=== PATIENT | female | born 1975 | race Caucasian/White ===

== ENCOUNTER 2025-07-07 09:34 | Inpatient (IN) ==
[2025-07-07 09:49] VITALS: BMI 25.5
[2025-07-07 10:16] LABS: MEAN PLATELET VOLUME 8.5 fL (7.4-11.0); RED CELL DISTRIBUTION WIDTH 14.1 % (11.6-16.5)
[2025-07-07 10:27] LABS: COR CA(FOR HYPOALB) 9.4 mg/dL (8.5-10.1); COR NA(FOR HYPERGLY) 132.0 mmol/L (136-145); CREATININE 1.89 mg/dL (0.55-1.02); eGFR NON BLACK RACES 30.0 (>60)
[2025-07-07 10:32] LABS: BAND NEUTROPHILS % 14 % (0-10); PLATELET MORPHOLOGY COMMENT NORMAL (NORMAL)
[2025-07-07 11:13] LABS: BLOOD/HEMOGLOBIN,URINE 3+ (NEGATIVE); LEUKOCYTE ESTERASE ,URINE 3+ (NEGATIVE); NITRITES,URINE NEGATIVE (NEGATIVE)
[2025-07-07 11:14] LABS: APPEARANCE,URINE CLOUDY (CLEAR)
[2025-07-07 11:20] LABS: SQUAMOUS EPITHELIAL CELL,UR FEW /HPF (NEGATIVE)
--- NOTE | 2025-07-07 11:27 | DR.GENAD ---
HPI Time Seen Time Seen by Provider: 07/07/25 09:49 PCP Primary Care Physician: DEBI Complaint/Symptoms Chief Complaint Doctors Comments: Patient with complaint of mid abdominal pain with nausea and diarrhea but no vomiting. This has been going on for 2 to 3 days. No fever. Chief Complaint:: Patient in to ER via WC very soft spoken C/O mid abdominal pain, nausea without vomiting, and diarrhea x 2-3 days. Mucosa moist and pink. COVID-19 Coronavirus risk:travel/contact w/high risk person: No Has patient experienced Coronavirus symptoms: No Source History Provided: Patient and Parent Mode of Arrival Mode of Arrival: Ambulatory Timing Onset of Chief Complaint: 07/05/25 PMH PMH Past Medical History: Yes Past Medical History: Arthritis and Hypertension Past Surgical History: Yes Surgical History: and Ortho Surgery Family History History of Family Medical Conditions: No Family Medical History: Cancer, Coronary Artery Disease and Hypertension Social History Does patient currently use any type of tobacco product: Yes Have you used tobacco products in the last 12 months: Yes Type of Tobacco Use: Vape Does any household member use tobacco: Yes Alcohol Use: None Do you use any recreational Drugs:: No Lives With: Family Lives Where: Home Travel Risk Coronavirus risk:travel/contact w/high risk person: No Has patient experienced Coronavirus symptoms: No Infectious screening In the last 2 months have you had wt loss of >10#?: NO Have you had fever, night sweats or hemotysis?: No Have you traveled outside the country in the last 6 months?: No Isolation: Standard ROS Review of Systems Constitutional: No Symptoms Reported Eyes: No Symptoms Reported ENTM: No Symptoms Reported Respiratoy: No Symptoms Reported Cardiovascular: No Symptoms Reported Gastrointestinal/Abdominal: See HPI Genitourinary: No Symptoms Reported Neurological: No Symptoms Reported Musculoskeletal: No Symptoms Reported Integumentary: No Symptoms Reported Hematologic/Lymphatic: No Symptoms Reported Endocrine: No Symptoms Reported Psychiatric: No Symptoms Reported All Other Systems: Reviewed and Negative PE Vital Signs Vitals: Vital Signs Temperature 97.9 F Pulse Rate 121 Respiratory Rate 16 Respiratory Rate 16 Blood Pressure 162/93 O2 Sat by Pulse Oximetry 96 General Limitations: No Limitations General Appearance: Alert and In No Apparent Distress Head Head Exam: Normal Inspection Eyes Eye exam: Normal Appearance Neck Neck Exam: Normal Inspection Chest Chest Inspection: Normal Inspection Respiratory Respiratory Exam: Normal Lung Sounds Bilat Respiratory Exam: Bilateral: Clear to Auscultation Cardiovascular Cardiovascular Exam: Regular Rate and Normal Rhythm Abdominal Exam Abdominal Exam: Normal Bowel Sounds, Soft and Tenderness (Left upper quadrant to left lower quadrant and generalized); negative Distention, Guarding, Rebound, Rigidity, Organomegaly or Ascites Extremities Extremities Exam: Normal Inspection Back Back Exam: Normal Inspection Neurologic Neurological Exam: Alert and Oriented X3 Psychiatric Psychiatric Exam: Normal Affect and Normal Mood Skin Skin Exam: Warm, Dry, Intact and Normal Color COURSE Treatment Treatment: Discussed results of workup with patient. Patient agreeable with admission. Consultation Consultation Comments: Discussed case with Dr. Benson, surgeon. He has seen and examined patient in the ER and agreeable with admission. Critical Care Notes Total Time (mins): 42 Critical Diagnosis: Colitis Critical Interventions: Time spent examining patient, Ordering and reviewing workup, coordinating with specialist and educating patient. Fluids and IV antibiotics given. ROR Labs Reviewed Laboratory Results Reviewed?: Yes 07/07/25 10:05 07/07/25 10:05 Laboratory: WBC 22.3 X10^3/uL (3.6-10.0) H 07/07/25 10:05 RBC 5.44 X10^6/uL (3.5-5.4) H 07/07/25 10:05 Hgb 16.3 g/dL (12.0-16.0) H 07/07/25 10:05 Hct 47.9 % (36.0-47.0) H 07/07/25 10:05 MCV 88.1 fL (80.0-100.0) 07/07/25 10:05 MCH 30.1 pg (27.0-34.0) 07/07/25 10:05 MCHC 34.1 g/dL (33.0-35.0) 07/07/25 10:05 RDW 14.1 % (11.6-16.5) 07/07/25 10:05 Plt Count 143 X10^3/uL (150.0-450.0) L 07/07/25 10:05 Plt Count Comment Decreased (ADEQUATE) A 07/07/25 10:05 MPV 8.5 fL (7.4-11.0) 07/07/25 10:05 Neut % (Auto) 89.4 % (42.0-75.0) H 07/07/25 10:05 Lymph % (Auto) 5.0 % (21.0-51.0) L 07/07/25 10:05 Edwards % (Auto) 5.5 % (0.0-13.0) 07/07/25 10:05 Eos % (Auto) 0.0 % (0.9-2.9) L 07/07/25 10:05 Baso % (Auto) 0.1 % (0.2-1.0) L 07/07/25 10:05 Neut # (Auto) 19.9 x10^3/uL (2.2-4.8) H 07/07/25 10:05 Lymph # (Auto) 1.1 X10^3/uL (1.3-2.9) L 07/07/25 10:05 Edwards # (Auto) 1.2 x10^3/uL (0.3-0.8) H 07/07/25 10:05 Eos # (Auto) 0.0 x10^3/uL (0.0-0.2) 07/07/25 10:05 Baso # (Auto) 0.0 X10^3/uL (0.0-0.1) 07/07/25 10:05 Absolute Nucleated RBC 0.1 /100WBC 07/07/25 10:05 Total Counted 100 07/07/25 10:05 Neutrophils % (Manual) 67 % (39-76) 07/07/25 10:05 Band Neutrophils % 14 % (0-10) H 07/07/25 10:05 Lymphocytes % (Manual) 7 % (13-43) L 07/07/25 10:05 Monocytes % (Manual) 12 % (4-9) H 07/07/25 10:05 Plt Morphology Comment Normal (NORMAL) 07/07/25 10:05 RBC Morphology Normal (NORMAL) 07/07/25 10:05 Sodium 130 mmol/L (136-145) L 07/07/25 10:05 Corrected Sodium 132 mmol/L (136-145) L 07/07/25 10:05 Potassium 3.7 mmol/L (3.5-5.1) 07/07/25 10:05 Chloride 92 mmol/L (98-107) L 07/07/25 10:05 Carbon Dioxide 30.5 mmol/L (21-32) 07/07/25 10:05 BUN 38 mg/dL (7-18) H 07/07/25 10:05 Creatinine 1.89 mg/dL (0.55-1.02) H 07/07/25 10:05 Est GFR (MDRD) Af Amer 36 (>60) L 07/07/25 10:05 Est GFR (MDRD) Non-Af 30 (>60) L 07/07/25 10:05 Glucose 171 mg/dL (65-99) H 07/07/25 10:05 Lactic Acid 2.3 mmol/L (0.4-2.0) H 07/07/25 11:48 Calcium 8.0 mg/dL (8.5-10.1) L 07/07/25 10:05 Corrected Calcium 9.4 mg/dL (8.5-10.1) 07/07/25 10:05 Total Bilirubin 0.40 mg/dL (0.2-1.0) 07/07/25 10:05 AST 50 Units/L (15-37) H 07/07/25 10:05 ALT 27 Units/L (12-78) 07/07/25 10:05 Alkaline Phosphatase 76 Units/L (46-116) 07/07/25 10:05 Total Protein 6.3 g/dL (6.4-8.2) L 07/07/25 10:05 Albumin 2.3 g/dL (3.4-5.0) L 07/07/25 10:05 Globulin 4.0 g/dL (2.5-4.5) 07/07/25 10:05 Albumin/Globulin Ratio 0.6 Ratio (1.1-2.1) L 07/07/25 10:05 Amylase 34 Units/L (25-115) 07/07/25 10:05 Lipase 17 Units/L (16-77) 07/07/25 10:05 Specimen Type Clean catch urine 07/07/25 11:04 Urine Color Dark yellow (YELLOW) 07/07/25 11:04 Urine Appearance Cloudy (CLEAR) 07/07/25 11:04 Urine pH 5.0 (5.0 - 8.0) 07/07/25 11:04 Ur Specific Gautier 1.020 (1.000-1.030) 07/07/25 11:04 Urine Protein 3+ (NEGATIVE) 07/07/25 11:04 Urine Glucose (UA) Negative (NEGATIVE) 07/07/25 11:04 Urine Ketones Negative (NEGATIVE) 07/07/25 11:04 Urine Blood 3+ (NEGATIVE) 07/07/25 11:04 Urine Nitrite Negative (NEGATIVE) 07/07/25 11:04 Urine Bilirubin Negative (NEGATIVE) 07/07/25 11:04 Urine Urobilinogen 1+ (NORMAL) 07/07/25 11:04 Ur Leukocyte Esterase 3+ (NEGATIVE) 07/07/25 11:04 Urine RBC 10-20 /HPF (0-3) A 07/07/25 11:04 Urine WBC 10-20 /HPF (0-5) A 07/07/25 11:04 Ur Squamous Epith Cells Few /HPF (NEGATIVE) 07/07/25 11:04 Amorphous Sediment 1+ /HPF (NEGATIVE) 07/07/25 11:04 Urine Bacteria 2+ /HPF (NEGATIVE) 07/07/25 11:04 Ur Culture Indicated? Yes/culture set up 07/07/25 11:04 Other Results Comments: Name: Nadine Watts : 1975 Sex: F Location: ER Order Number(s): [id number] Procedure(s):CT ABDOMEN/PELVIS W/O CON Ordering Physician: Eduardo Motta Primary Care: NFD,None Service Date: 07/07/25 Service Time: 948 EXAM: CT abdomen pelvis without contrast HISTORY: Abdominal pain TECHNIQUE: Axial noncontrast images with coronal and sagittal reformats. Dose reduction procedures were used with mA/kv adjusted for body size. This examination is limited due to the lack of intravenous contrast and oral contrast. The examination was performed without contrast at the SOLE DIRECTION of the ordering caregiver. Radiology was afforded absolutely NO input into the method of performance of this examination. COMPARISON: None FINDINGS: Lung bases are clear. There is a moderately large amount of intraperitoneal fluid present best visualized in the pelvis and adjacent to the liver and spleen. The liver, spleen, adrenal glands, and pancreas appear within normal limits but only to the limitations of an examination performed without intravenous and without oral contrast. Kidneys are unobstructed and without stones. No ureteral calculi are. The appendix is not identified with absolute certainty. There are no definite secondary signs of appendicitis. Mild calcific atherosclerotic changes present in a nondilated abdominal aorta. No enlarged intraperitoneal or retroperitoneal lymphadenopathy identified. There is severe transmural thickening in the transverse colon, splenic flexure, and descending colon with associated severe pericolonic inflammation present. There is severe mesocolic and mesenteric inflammation present. Colonic wall thickness in some area measures as much as 2.4 cm. No pneumoperitoneum is present. There are some unusual air densities in the area of the hepatic flexure suggesting the possibility of pneumatosis intestinalis. No portal venous gas is identified. Rectum and sigmoid colon are not involved. Findings are most consistent with a severe acute colitis which could be infectious, inflammatory (as in acute ulcerative colitis and acute granulomatous colitis), or ischemic in origin. Ischemic colitis must be clinically excluded. Lactic acid levels should be obtained. Immediate surgical evaluation is recommended. Examination of the pelvis demonstrated no evidence for pelvic masses. There is a large amount of pelvic fluid present likely related to the inflammatory process present within the colon. No bladder abnormality is identified. No lytic or blastic skeletal lesions of significance identified. IMPRESSION: Findings consistent with extremely severe acute colitis involving the transverse colon, splenic flexure, and descending colon. There is severe transmural thickening, severe pericolonic inflammation, and mesocolic and mesenteric inflammation. Possible etiologies include infectious colitis, inflammatory colitis (as in acute ulcerative colitis and acute granulomatous colitis), and ischemic colitis. There are some unusual linear gas densities in the area of the hepatic flexure. Pneumatosis intestinalis is not excluded. Ischemic colitis must be clinically excluded. Clinical and historical correlation, lactic acid levels, and immediate surgical evaluation recommended. Large amount of peritoneal fluid likely related to the severe inflammatory process present. Findings were discussed by me at length with Dr. Hawkins 10:32 a.m. LASTEX OPERATOR 07/07/2025. THIS IS AN ELECTRONICALLY VERIFIED FINAL REPORT 07/07/2025 11:32 AM - Electronically signed by Oleg Calhoun MD Opioid Opioid Risk Tool Age (Saúl box if 16-45): No History of Preadolescent Sexual Abuse: No Total: 0 Total Score Risk Category: Low Risk Copyright: [facility] predicting aberrant behaviors Discharge Plan Diagnosis Discharge Problem: Colitis Discharge Plan Patient Disposition: ADMITTED INPATIENT Condition: Stable Prescriptions: No Action lisinopril 20 mg tablet 20 mg PO DAILY Qty: 20 0RF Health Concerns: Post Hospitalization: new medications and changes needed to prevent readmission or further decline. Pt educated and given instructions on all concerns. Plan of Treatment: Continue with present treatment and follow up plan. Pt is to keep follow up appointment as instructed and take medications as ordered. Orders to Discharge Patient Discharge Orders: Transfer (Routine); Ordered 07/07/25 Ordered By: Eduardo Motta Follow ups/Referrals Follow ups/Referrals: NFD,None [Primary Care Provider] - 3 days Instructions Stand Alone Forms: Find Help Web Site, Post Hospital Follow Up Care Print Language: ESTONIAN
--- NOTE | 2025-07-07 11:35 | CT ---
EXAM: CT abdomen pelvis without contrast HISTORY: Abdominal pain TECHNIQUE: Axial noncontrast images with coronal and sagittal reformats. Dose reduction procedures were used with mA/kv adjusted for body size. This examination is limited due to the lack of intravenous contrast and oral contrast. The examination was performed without contrast at the SOLE DIRECTION of the ordering caregiver. Radiology was afforded absolutely NO input into the method of performance of this examination. COMPARISON: None FINDINGS: Lung bases are clear. There is a moderately large amount of intraperitoneal fluid present best visualized in the pelvis and adjacent to the liver and spleen. The liver, spleen, adrenal glands, and pancreas appear within normal limits but only to the limitations of an examination performed without i ntravenous and without oral contrast. Kidneys are unobstructed and without stones. No ureteral calculi are. The appendix is not identified with absolute certainty. There are no definite secondary signs of appendicitis. Mild calcific atherosclerotic changes present in a nondilated abdominal aorta. No enlarged intraperitoneal or retroperitoneal lymphadenopathy identified. There is severe transmural thickening in the transverse colon, splenic flexure, and descending colon with associated severe pericolonic inflammation present. There is severe mesocolic and mesenteric inflammation present. Colonic wall thickness in some area measures as much as 2.4 cm. No pneumoperitoneum is present. There are some unusual air densities in the area of the hepatic flexure suggesting the possibility of pneumatosis intestinalis. No portal venous gas is identified. Rectum and sigmoid colon are not involved. Findings are most consistent with a severe acute colitis which could be infectious, inflammatory (as in acute ulcerative colitis and acute granulomatous colitis), or ischemic in origin. Ischemic colitis must be clinically excluded. Lactic acid levels should be obtained. Immediate surgical evaluation is recommended. Examination of the pelvis demonstrated no evidence for pelvic masses. There is a large amount of pelvic fluid present likely related to the inflammatory process present within the colon. No bladder abnormality is identified. No lytic or blastic skeletal lesions of significance identified. IMPRESSION: Findings consistent with extremely severe acute colitis involving the transverse colon, splenic flexure, and descending colon. There is severe transmural thickening, severe pericolonic inflammation, and mesocolic and mesenteric inflammation. Possible etiologies include infectious colitis, inflammatory colitis (as in acute ulcerative colitis and acute granulomatous colitis), and ischemic colitis. There are some unusual linear gas densities in the area of the hepatic flexure. Pneumatosis intestinalis is not excluded. Ischemic colitis must be clinically excluded. Clinical and historical correlation, lactic acid levels, and immediate surgical evaluation recommended. Large amount of peritoneal fluid likely related to the severe inflammatory process present. Findings were discussed by me at length with Dr. Hawkins 10:32 a.m. TUBE BALANCER 07/07/2025. THIS IS AN ELECTRONICALLY VERIFIED FINAL REPORT 07/07/2025 11:32 AM - Electronically signed by Oleg Calhoun MD
[2025-07-07] MEDS: NS 1,000 ML IV 1,000 ML IV ONE (11:46)
[2025-07-07] MEDS: CIPRO IV 400 MG PREMIX* 400 MG/200 ML IV.SOLN. IV STA (11:46)
[2025-07-07] MEDS: DILAUDID INJ IVP ONE (11:48)
[2025-07-07] MEDS: FLAGYL IV PREMIX 500 MG BAG 500 MG/100 ML BAG IV ONE (12:50)
[2025-07-07] MEDS: LR 1,000 ML IV 1,000 ML IV ONE (12:56)
--- NOTE | 2025-07-07 14:01 | EKG ---
Test Reason : Colitis, pre-op Blood Pressure : */* mmHG Vent. Rate : 108 BPM Atrial Rate : 108 BPM P-R Int : 126 ms QRS Dur : 78 ms QT Int : 308 ms P-R-T Axes : 43 3 78 degrees QTc Int : 412 ms Sinus tachycardia Nonspecific T wave abnormality Abnormal ECG No previous ECGs available Confirmed by Chip Walton MD ([id number]) on 07/08/2025 7:20:57 AM Referred By: Confirmed By: Chip Walton MD
[2025-07-07] MEDS ORDERED: CONSULT PHARMACY - POTASSIUM & MAGNESIUM XX SCH (14:56)
[2025-07-07] MEDS: FLAGYL IV PREMIX 500 MG BAG 500 MG/100 ML BAG IV SCH (16:00)
[2025-07-07] MEDS: LR 1,000 ML IV 1,000 ML IV SCH (16:11)
[2025-07-07] MEDS: TAMIFLU PO ONE (17:00)
[2025-07-07] MEDS: DUONEB 0.5 MG/3 MG (3 mL) NEB SCH (21:00)
[2025-07-07] MEDS: DILAUDID INJ IVP PRN (23:27)
[2025-07-08] MEDS: NS 1,000 ML IV 1,000 ML ONE (01:51)
[2025-07-08] MEDS: DILAUDID INJ ONE (01:52)
[2025-07-08] MEDS: LR 1,000 ML IV 1,000 ML IV ONE (01:54)
[2025-07-08 05:02] LABS: MEAN PLATELET VOLUME 8.7 fL (7.4-11.0); RED CELL DISTRIBUTION WIDTH 14.1 % (11.6-16.5)
[2025-07-08 05:08] LABS: COR CA(FOR HYPOALB) 9.6 mg/dL (8.5-10.1); COR NA(FOR HYPERGLY) 133 mmol/L (136-145); CREATININE 1.21 mg/dL (0.55-1.02); eGFR NON BLACK RACES 50 (>60)
[2025-07-08] MEDS ORDERED: CONSULT PHARMACY - POTASSIUM & MAGNESIUM XX SCH (07:00)
--- NOTE | 2025-07-08 07:44 | RAD ---
EXAMINATION: CHEST, 1 VIEW HISTORY: COLITIS; HTN, SX: CSECTION, ORTHO . COMPARISON STUDY: None. TECHNIQUE: Single frontal view of the chest FINDINGS: Lungs are expanded. Streaky opacity medial right pulmonary base. Heart size and pulmonary vascular pattern appear normal. CP angles are sharp. Bones are intact. IMPRESSION: Streaky opacity medial right pulmonary base. Imaging artifact partially obscures the right infrahilar region. THIS IS AN ELECTRONICALLY VERIFIED FINAL REPORT 07/08/2025 7:40 AM - Electronically signed by Dorothy Casey MD
[2025-07-08] MEDS: K-DUR TAB 20 MEQ PO SCH (08:10)
[2025-07-08] MEDS: TAMIFLU PO SCH (08:10)
[2025-07-08] MEDS: CIPRO IV 400 MG PREMIX* 400 MG/200 ML IV.SOLN. IV SCH (08:11)
--- NOTE | 2025-07-08 08:16 | RAD ---
EXAM: KUB HISTORY: COLITIS ; HTN SX: CSECTION, ORTHO COMPARISON: None FINDINGS: Evaluation of the abdomen demonstrates a nonobstructive bowel gas pattern. No evidence of pneumoperitoneum. No pathologic soft tissue calcification. No acute osseous abnormality. IMPRESSION: No acute abdominal process. THIS IS AN ELECTRONICALLY VERIFIED FINAL REPORT 07/08/2025 8:13 AM - Electronically signed by Oleg Calhoun MD
--- NOTE | 2025-07-08 09:08 | DR.CONSULT ---
CONSULT Consultation for Day of: Date: 07/07/25 Chief Complaint Chief Complaint: abdominal pain Allergies Allergies Allergy/AdvReac Type Severity Reaction Status Date / Time penicillin V Allergy Unknown Verified 03/16/20 15:58 Penicillins Allergy Verified 05/12/19 21:10 History of Present Illness History of Present Illness: Patient is a 50-year-old female with a past medical history of hypertension presenting with abdominal pain that has been progressively getting worse over the past 3 days. She denies any fevers or chills. She does report having diarrhea. States that she has been feeling weak. Labs/imaging: WBC 22, hemoglobin 16.3, platelets 143, sodium 132, potassium 3.7, creatinine 1.89, glucose 171, lactic acid 2.31.9, amylase 34, lipase 17, UA consistent with infection, flu A+, CT abdomen and pelvis was obtained that revealed a severe acute colitis. Blood culture/urine culture pending. Patient was admitted for acute colitis, influenza A positive, acute renal failure, dehydration, acute cystitis. Patient was started on IV fluids LR at 125 mL/h. IV antibiotics ciprofloxacin and metronidazole. Order Tamiflu. Order stool studies. Will keep n.p.o. at this time. General surgery is primary and we have been consulted for medical management. Repeat a lactic acid. Monitor renal function. Otherwise continue with current treatment plan. Continue closely monitor and follow-up labs/imaging. Time spent for clinical assessment, reviewing labs/imaging, physical exam, decision making and documentation greater than 45 mins. Past Medical History Past Medical History: Hypertension Past Surgical History Surgical History: and Ortho Surgery Family History Family Medical History: Cancer and Hypertension Social History Does patient currently use any type of tobacco product: No Have you used tobacco products in the last 12 months: Yes Type of Tobacco Use: None Does any household member use tobacco: No Alcohol Use: None Drug Use: None Medications Home Medications: penicillin V Allergy (Unknown, Verified 03/16/20 15:58) Penicillins Allergy (Verified 05/12/19 21:10) CONTINUE taking the following medications NK 07/07/25 [History] Review of Systems Constitutional: Weakness Eyes: No Symptoms Reported ENT: No Symptoms Reported Respiratory: No Symptoms Reported Cardiovascular: No Symptoms Reported Gastrointestinal: Abdominal Pain and Diarrhea Genitourinary: No Symptoms Reported Musculoskeletal: No Symptoms Reported Skin: No Symptoms Reported Neurological: No Symptoms Reported Physical Exam Vital Signs: Vital Signs Temperature 98.7 F Pulse Rate [Radial] 109 Pulse Rate 97 Respiratory Rate 18 Respiratory Rate 19 Respiratory Rate 16 Blood Pressure [Left Arm] 144/83 O2 Sat by Pulse Oximetry 94 O2 Sat by Pulse Oximetry 91 Oriented: Normal Eyes: Normal Ear: Normal Nose: Normal Respiratory: Clear Throughout Cardiovascular: Normal : Normal Auscultation: Bowel Sounds: Normal Palpation: Normal Tenderness: Epigastric Skin: Decreased Turgur Psychiatric: Normal Speech Pattern: Clear Plan (1) Acute colitis: Status: Acute (2) Influenza A: Status: Acute (3) Acute renal failure: Status: Acute Qualifiers: Acute renal failure type: unspecified Qualified Code(s): N17.9 - Acute kidney failure, unspecified (4) Dehydration: Status: Acute (5) Essential hypertension: Status: None
--- NOTE | 2025-07-08 10:15 | PCM.PROG ---
Progress Note Progress Note for Day of Date of Exam: 07/08/25 Subjective Subjective: Patient seen at bedside, no acute events overnight. She reports feeling slightly better. She is currently admitted for flu, UTI, SARAH and colitis. She remains on IV antibiotics. She denies having any diarrhea. She states pain medication only helps a little bit. She is currently on ice chips. Labs/imaging reviewed: - WBC 18.5 hemoglobin 13.1 platelet 139 potassium 3.6 creatinine 1.21 - Urine and blood cultures pending - KUB: No acute changes noted - Chest x-ray: Right base streaky opacity Plan: Continue IV fluids, pain control. Will add Toradol. Continue IV antibiotics. Continue Tamiflu. Add bronchodilators. Follow cultures. Follow surgery recommendations. Stool studies were ordered but patient does not have any diarrhea. Advance diet as per surgery. Replace electrolytes as per protocol. Monitor a.m. labs and imaging. Past Medical Family Social History Allergies: Allergies penicillin V Allergy (Unknown, Verified 03/16/20 15:58) Reason: Drug allergy Penicillins Allergy (Verified 05/12/19 21:10) Vital Signs and I&O's Vital Signs: Vital Signs Temperature 99.2 F Temperature 98.7 F Pulse Rate [Radial] 110 Pulse Rate [Radial] 109 Pulse Rate 97 Respiratory Rate 19 Respiratory Rate 18 Respiratory Rate 19 Respiratory Rate 16 Blood Pressure [Left Arm] 152/86 Blood Pressure [Left Arm] 144/83 O2 Sat by Pulse Oximetry 93 O2 Sat by Pulse Oximetry 94 O2 Sat by Pulse Oximetry 91 Intake and Output: Intake & Output 07/05/25 07/06/25 07/07/25 07/08/25 23:59 23:59 23:59 23:59 Intake Total 0 / 0 0 / 0 Balance 0 / 0 0 / 0 Physical Exam Oriented: Normal Eyes: Normal Ear: Normal Nose: Normal Respiratory: Generalized and Diminished Cardiovascular: Normal : Normal Auscultation: Bowel Sounds: Normal Tenderness: Epigastric and Mild Skin: Decreased Turgur Psychiatric: Normal Mood Description: Calm Affect: Normal Speech Pattern: Clear and Appropriate Laboratory and Diagnostics 07/08/25 04:34 07/08/25 04:34 Labs: 07/07/25 11:04 Urine,Clean Catch Urine Culture - Preliminary Laboratory WBC 18.5 X10^3/uL (3.6-10.0) H 07/08/25 04:34 RBC 4.35 X10^6/uL (3.5-5.4) 07/08/25 04:34 Hgb 13.1 g/dL (12.0-16.0) D 07/08/25 04:34 Hct 38.4 % (36.0-47.0) 07/08/25 04:34 MCV 88.2 fL (80.0-100.0) 07/08/25 04:34 MCH 30.0 pg (27.0-34.0) 07/08/25 04:34 MCHC 34.0 g/dL (33.0-35.0) 07/08/25 04:34 RDW 14.1 % (11.6-16.5) 07/08/25 04:34 Plt Count 139 X10^3/uL (150.0-450.0) L 07/08/25 04:34 Plt Count Comment Decreased (ADEQUATE) A 07/07/25 10:05 MPV 8.7 fL (7.4-11.0) 07/08/25 04:34 Neut % (Auto) 85.7 % (42.0-75.0) H 07/08/25 04:34 Lymph % (Auto) 6.7 % (21.0-51.0) L 07/08/25 04:34 [place] % (Auto) 7.3 % (0.0-13.0) 07/08/25 04:34 Eos % (Auto) 0.2 % (0.9-2.9) L 07/08/25 04:34 Baso % (Auto) 0.1 % (0.2-1.0) L 07/08/25 04:34 Neut # (Auto) 15.9 x10^3/uL (2.2-4.8) H 07/08/25 04:34 Lymph # (Auto) 1.2 X10^3/uL (1.3-2.9) L 07/08/25 04:34 [place] # (Auto) 1.4 x10^3/uL (0.3-0.8) H 07/08/25 04:34 Eos # (Auto) 0.0 x10^3/uL (0.0-0.2) 07/08/25 04:34 Baso # (Auto) 0.0 X10^3/uL (0.0-0.1) 07/08/25 04:34 Absolute Nucleated RBC 0.1 /100WBC 07/08/25 04:34 Total Counted 100 07/07/25 10:05 Neutrophils % (Manual) 67 % (39-76) 07/07/25 10:05 Band Neutrophils % 14 % (0-10) H 07/07/25 10:05 Lymphocytes % (Manual) 7 % (13-43) L 07/07/25 10:05 Monocytes % (Manual) 12 % (4-9) H 07/07/25 10:05 Plt Morphology Comment Normal (NORMAL) 07/07/25 10:05 RBC Morphology Normal (NORMAL) 07/07/25 10:05 Sodium 133 mmol/L (136-145) L 07/08/25 04:34 Corrected Sodium 133 mmol/L (136-145) L 07/08/25 04:34 Potassium 3.6 mmol/L (3.5-5.1) 07/08/25 04:34 Chloride 98 mmol/L (98-107) 07/08/25 04:34 Carbon Dioxide 26.6 mmol/L (21-32) 07/08/25 04:34 BUN 33 mg/dL (7-18) H 07/08/25 04:34 Creatinine 1.21 mg/dL (0.55-1.02) H 07/08/25 04:34 Est GFR (MDRD) Af Amer > 60 (>60) 07/08/25 04:34 Est GFR (MDRD) Non-Af 50 (>60) L 07/08/25 04:34 Glucose 113 mg/dL (65-99) H 07/08/25 04:34 Lactic Acid 1.5 mmol/L (0.4-2.0) 07/08/25 00:05 Calcium 7.8 mg/dL (8.5-10.1) L 07/08/25 04:34 Corrected Calcium 9.6 mg/dL (8.5-10.1) 07/08/25 04:34 Total Bilirubin 0.40 mg/dL (0.2-1.0) 07/08/25 04:34 AST 37 Units/L (15-37) 07/08/25 04:34 ALT 19 Units/L (12-78) 07/08/25 04:34 Alkaline Phosphatase 64 Units/L (46-116) 07/08/25 04:34 Total Protein 5.3 g/dL (6.4-8.2) L 07/08/25 04:34 Albumin 1.8 g/dL (3.4-5.0) L 07/08/25 04:34 Globulin 3.5 g/dL (2.5-4.5) 07/08/25 04:34 Albumin/Globulin Ratio 0.5 Ratio (1.1-2.1) L 07/08/25 04:34 Amylase 34 Units/L (25-115) 07/07/25 10:05 Lipase 17 Units/L (16-77) 07/07/25 10:05 Specimen Type Clean catch urine 07/07/25 11:04 Urine Color Dark yellow (YELLOW) 07/07/25 11:04 Urine Appearance Cloudy (CLEAR) 07/07/25 11:04 Urine pH 5.0 (5.0 - 8.0) 07/07/25 11:04 Ur Specific [place] 1.020 (1.000-1.030) 07/07/25 11:04 Urine Protein 3+ (NEGATIVE) 07/07/25 11:04 Urine Glucose (UA) Negative (NEGATIVE) 07/07/25 11:04 Urine Ketones Negative (NEGATIVE) 07/07/25 11:04 Urine Blood 3+ (NEGATIVE) 07/07/25 11:04 Urine Nitrite Negative (NEGATIVE) 07/07/25 11:04 Urine Bilirubin Negative (NEGATIVE) 07/07/25 11:04 Urine Urobilinogen 1+ (NORMAL) 07/07/25 11:04 Ur Leukocyte Esterase 3+ (NEGATIVE) 07/07/25 11:04 Urine RBC 10-20 /HPF (0-3) A 07/07/25 11:04 Urine WBC 10-20 /HPF (0-5) A 07/07/25 11:04 Ur Squamous Epith Cells Few /HPF (NEGATIVE) 07/07/25 11:04 Amorphous Sediment 1+ /HPF (NEGATIVE) 07/07/25 11:04 Urine Bacteria 2+ /HPF (NEGATIVE) 07/07/25 11:04 Ur Culture Indicated? Yes/culture set up 07/07/25 11:04 SARS-CoV-2 (PCR) Negative (NEGATIVE) 07/07/25 13:20 Influenza Type A (PCR) Positive (NEGATIVE) A 07/07/25 13:20 Influenza Type B (PCR) Negative (NEGATIVE) 07/07/25 13:20 RSV (PCR) Negative (NEGATIVE) 07/07/25 13:20 Plan (1) Acute colitis: Status: Acute (2) Influenza A: Status: Acute (3) Acute renal failure: Status: Acute Qualifiers: Acute renal failure type: unspecified Qualified Code(s): N17.9 - Acute kidney failure, unspecified (4) UTI (urinary tract infection): Status: Acute Qualifiers: Hematuria presence: without hematuria Urinary tract infection type: a cute cystitis Qualified Code(s): N30.00 - Acute cystitis without hematuria (5) Dehydration: Status: Acute (6) Essential hypertension: Status: None
--- NOTE | 2025-07-08 11:06 | DR.PROGNOT ---
HOSPITAL PROGRESS NOTE Progress Note for Day of: Progress Note Date: 07/08/25 Chief Complaint Chief Complaint: Patient is showing some mild improvement with less abdominal pain, no shortness of breath, no more diarrhea and actually no bowel movement last night or today. Still complaining of congestion, no significant shortness of breath. Repeated KUB did not show bowel obstruction or free air. White count is elevated to 18.5 with shift to the left, hemoglobin 13, sodium potassium are normal. BUN 33 and creatinine 1.21. Blood sugar 113, bilirubin and liver function tests are normal. Lactic acid is 1.5, flu a is positive with sed rate 28. Lung is clear. Abdomen is full with mild distention and hypoactive bowel sounds, she has mild diffuse tenderness but no rebound tenderness, no rigidity. Past Medical Family Social History Allergies: Allergies penicillin V Allergy (Unknown, Verified 03/16/20 15:58) Reason: Drug allergy Penicillins Allergy (Verified 05/12/19 21:10) Vital Signs Vital Signs: Vital Signs Temperature 99.2 F Temperature 98.7 F Pulse Rate [Radial] 110 Pulse Rate [Radial] 109 Pulse Rate 97 Respiratory Rate 19 Respiratory Rate 18 Respiratory Rate 19 Respiratory Rate 16 Blood Pressure [Left Arm] 152/86 Blood Pressure [Left Arm] 144/83 O2 Sat by Pulse Oximetry 93 O2 Sat by Pulse Oximetry 94 O2 Sat by Pulse Oximetry 91 Physical Exam Oriented: Normal Eyes: Normal Ear: Normal Nose: Normal Respiratory: Generalized and Diminished Cardiovascular: Normal : Normal GI:Auscultation: Normal GI:Palpation: Normal GI: Tenderness: Epigastric and Mild Skin: Decreased Turgur Psychiatric: Normal Mood Description: Calm Affect: Normal Speech Pattern: Clear and Appropriate Laboratory and Diagnostics 07/08/25 04:34 07/08/25 04:34 Labs: 07/07/25 11:04 Urine,Clean Catch Urine Culture - Preliminary Laboratory WBC 18.5 X10^3/uL (3.6-10.0) H 07/08/25 04:34 RBC 4.35 X10^6/uL (3.5-5.4) 07/08/25 04:34 Hgb 13.1 g/dL (12.0-16.0) D 07/08/25 04:34 Hct 38.4 % (36.0-47.0) 07/08/25 04:34 MCV 88.2 fL (80.0-100.0) 07/08/25 04:34 MCH 30.0 pg (27.0-34.0) 07/08/25 04:34 MCHC 34.0 g/dL (33.0-35.0) 07/08/25 04:34 RDW 14.1 % (11.6-16.5) 07/08/25 04:34 Plt Count 139 X10^3/uL (150.0-450.0) L 07/08/25 04:34 Plt Count Comment Decreased (ADEQUATE) A 07/07/25 10:05 MPV 8.7 fL (7.4-11.0) 07/08/25 04:34 Neut % (Auto) 85.7 % (42.0-75.0) H 07/08/25 04:34 Lymph % (Auto) 6.7 % (21.0-51.0) L 07/08/25 04:34 [place] % (Auto) 7.3 % (0.0-13.0) 07/08/25 04:34 Eos % (Auto) 0.2 % (0.9-2.9) L 07/08/25 04:34 Baso % (Auto) 0.1 % (0.2-1.0) L 07/08/25 04:34 Neut # (Auto) 15.9 x10^3/uL (2.2-4.8) H 07/08/25 04:34 Lymph # (Auto) 1.2 X10^3/uL (1.3-2.9) L 07/08/25 04:34 [place] # (Auto) 1.4 x10^3/uL (0.3-0.8) H 07/08/25 04:34 Eos # (Auto) 0.0 x10^3/uL (0.0-0.2) 07/08/25 04:34 Baso # (Auto) 0.0 X10^3/uL (0.0-0.1) 07/08/25 04:34 Absolute Nucleated RBC 0.1 /100WBC 07/08/25 04:34 Total Counted 100 07/07/25 10:05 Neutrophils % (Manual) 67 % (39-76) 07/07/25 10:05 Band Neutrophils % 14 % (0-10) H 07/07/25 10:05 Lymphocytes % (Manual) 7 % (13-43) L 07/07/25 10:05 Monocytes % (Manual) 12 % (4-9) H 07/07/25 10:05 Plt Morphology Comment Normal (NORMAL) 07/07/25 10:05 RBC Morphology Normal (NORMAL) 07/07/25 10:05 Sodium 133 mmol/L (136-145) L 07/08/25 04:34 Corrected Sodium 133 mmol/L (136-145) L 07/08/25 04:34 Potassium 3.6 mmol/L (3.5-5.1) 07/08/25 04:34 Chloride 98 mmol/L (98-107) 07/08/25 04:34 Carbon Dioxide 26.6 mmol/L (21-32) 07/08/25 04:34 BUN 33 mg/dL (7-18) H 07/08/25 04:34 Creatinine 1.21 mg/dL (0.55-1.02) H 07/08/25 04:34 Est GFR (MDRD) Af Amer > 60 (>60) 07/08/25 04:34 Est GFR (MDRD) Non-Af 50 (>60) L 07/08/25 04:34 Glucose 113 mg/dL (65-99) H 07/08/25 04:34 Lactic Acid 1.5 mmol/L (0.4-2.0) 07/08/25 00:05 Calcium 7.8 mg/dL (8.5-10.1) L 07/08/25 04:34 Corrected Calcium 9.6 mg/dL (8.5-10.1) 07/08/25 04:34 Total Bilirubin 0.40 mg/dL (0.2-1.0) 07/08/25 04:34 AST 37 Units/L (15-37) 07/08/25 04:34 ALT 19 Units/L (12-78) 07/08/25 04:34 Alkaline Phosphatase 64 Units/L (46-116) 07/08/25 04:34 Total Protein 5.3 g/dL (6.4-8.2) L 07/08/25 04:34 Albumin 1.8 g/dL (3.4-5.0) L 07/08/25 04:34 Globulin 3.5 g/dL (2.5-4.5) 07/08/25 04:34 Albumin/Globulin Ratio 0.5 Ratio (1.1-2.1) L 07/08/25 04:34 Amylase 34 Units/L (25-115) 07/07/25 10:05 Lipase 17 Units/L (16-77) 07/07/25 10:05 Specimen Type Clean catch urine 07/07/25 11:04 Urine Color Dark yellow (YELLOW) 07/07/25 11:04 Urine Appearance Cloudy (CLEAR) 07/07/25 11:04 Urine pH 5.0 (5.0 - 8.0) 07/07/25 11:04 Ur Specific [place] 1.020 (1.000-1.030) 07/07/25 11:04 Urine Protein 3+ (NEGATIVE) 07/07/25 11:04 Urine Glucose (UA) Negative (NEGATIVE) 07/07/25 11:04 Urine Ketones Negative (NEGATIVE) 07/07/25 11:04 Urine Blood 3+ (NEGATIVE) 07/07/25 11:04 Urine Nitrite Negative (NEGATIVE) 07/07/25 11:04 Urine Bilirubin Negative (NEGATIVE) 07/07/25 11:04 Urine Urobilinogen 1+ (NORMAL) 07/07/25 11:04 Ur Leukocyte Esterase 3+ (NEGATIVE) 07/07/25 11:04 Urine RBC 10-20 /HPF (0-3) A 07/07/25 11:04 Urine WBC 10-20 /HPF (0-5) A 07/07/25 11:04 Ur Squamous Epith Cells Few /HPF (NEGATIVE) 07/07/25 11:04 Amorphous Sediment 1+ /HPF (NEGATIVE) 07/07/25 11:04 Urine Bacteria 2+ /HPF (NEGATIVE) 07/07/25 11:04 Ur Culture Indicated? Yes/culture set up 07/07/25 11:04 SARS-CoV-2 (PCR) Negative (NEGATIVE) 07/07/25 13:20 Influenza Type A (PCR) Positive (NEGATIVE) A 07/07/25 13:20 Influenza Type B (PCR) Negative (NEGATIVE) 07/07/25 13:20 RSV (PCR) Negative (NEGATIVE) 07/07/25 13:20 Assessment and Plan 1: Influenza A Improving severe colitis from the influenza A with dehydration but improving acute kidney injury. To start patient on clear liquid diet, continue IV antibiotics and Tamiflu, IV fluid and close observation. Problem Patient Problems: Patient Problems Colitis (Acute) K52.9
[2025-07-08] MEDS: DUONEB 0.5 MG/3 MG (3 mL) NEB SCH (13:13)
[2025-07-08] MEDS: TORADOL 30 MG VIAL IVP PRN (14:07)
[2025-07-08] MEDS: ZOFRAN INJ 4 MG VIAL IVP PRN (16:39)
[2025-07-09 04:59] LABS: COR CA(FOR HYPOALB) 9.6 mg/dL (8.5-10.1); CREATININE 0.80 mg/dL (0.55-1.02); eGFR NON BLACK RACES > 60 (>60)
[2025-07-09 05:00] LABS: MEAN PLATELET VOLUME 8.6 fL (7.4-11.0)
[2025-07-09 05:03] LABS: RED CELL DISTRIBUTION WIDTH 14.0 % (11.6-16.5)
[2025-07-09] MEDS: LOVENOX INJ 40 MG SYR SC SCH (08:38)
--- NOTE | 2025-07-09 09:27 | PCM.PROG ---
Progress Note Progress Note for Day of Date of Exam: 07/09/25 Subjective Subjective: Patient resting in bed. No acute events overnight. She continues to slowly improve but still has abdominal pain. She is currently admitted for flu, UTI, SARAH and colitis. She remains on IV antibiotics. Denies any diarrhea. Her diet has advanced to full liquids. Labs/imaging reviewed: - WBC 14.1, hemoglobin 11.7, platelets 132, sodium 134, potassium 3.3, creatinine 0.8, glucose 82 - Urine Culture shows gram-negative rods, Blood culture pending. - KUB: Pending Plan: Continue IV fluids, pain control. Continue IV antibiotics. Leukocytosis trending down. Continue Tamiflu, bronchodilators. Follow cultures. Follow surgery recommendations. Stool studies were ordered but patient does not have any diarrhea. Advance diet as per surgery. Replace electrolytes as per protocol. Monitor a.m. labs and imaging. Past Medical Family Social History Allergies: Allergies penicillin V Allergy (Unknown, Verified 03/16/20 15:58) Reason: Drug allergy Penicillins Allergy (Verified 05/12/19 21:10) Review of Systems ROS changes noted: see HPI Vital Signs and I&O's Vital Signs: Vital Signs Temperature 97.7 F Pulse Rate [Radial] 98 Respiratory Rate 18 Respiratory Rate 18 Respiratory Rate 18 Respiratory Rate 19 Blood Pressure [Left Arm] 166/98 O2 Sat by Pulse Oximetry 93 Intake and Output: Intake & Output 07/06/25 07/07/25 07/08/25 07/09/25 23:59 23:59 23:59 23:59 Intake Total 0 / 0 1331 / 1331 1707 / 1707 Balance 0 / 0 1331 / 1331 1707 / 1707 Physical Exam Oriented: Normal Eyes: Normal Ear: Normal Nose: Normal Respiratory: Generalized and Diminished Cardiovascular: Normal : Normal Auscultation: Bowel Sounds: Normal Tenderness: Epigastric and Mild Skin: Decreased Turgur Psychiatric: Normal Mood Description: Calm Affect: Normal Speech Pattern: Clear and Appropriate Laboratory and Diagnostics 07/09/25 04:31 07/09/25 04:31 Labs: 07/07/25 11:04 Urine,Clean Catch Urine Culture - Preliminary Laboratory WBC 14.1 X10^3/uL (3.6-10.0) H 07/09/25 04:31 RBC 3.86 X10^6/uL (3.5-5.4) 07/09/25 04:31 Hgb 11.7 g/dL (12.0-16.0) L 07/09/25 04:31 Hct 34.2 % (36.0-47.0) L 07/09/25 04:31 MCV 88.7 fL (80.0-100.0) 07/09/25 04:31 MCH 30.4 pg (27.0-34.0) 07/09/25 04:31 MCHC 34.3 g/dL (33.0-35.0) 07/09/25 04:31 RDW 14.0 % (11.6-16.5) 07/09/25 04:31 Plt Count 132 X10^3/uL (150.0-450.0) L 07/09/25 04:31 Plt Count Comment Decreased (ADEQUATE) A 07/07/25 10:05 MPV 8.6 fL (7.4-11.0) 07/09/25 04:31 Neut % (Auto) 88.4 % (42.0-75.0) H 07/09/25 04:31 Lymph % (Auto) 5.8 % (21.0-51.0) L 07/09/25 04:31 [place] % (Auto) 5.7 % (0.0-13.0) 07/09/25 04:31 Eos % (Auto) 0.0 % (0.9-2.9) L 07/09/25 04:31 Baso % (Auto) 0.1 % (0.2-1.0) L 07/09/25 04:31 Neut # (Auto) 12.5 x10^3/uL (2.2-4.8) H 07/09/25 04:31 Lymph # (Auto) 0.8 X10^3/uL (1.3-2.9) L 07/09/25 04:31 [place] # (Auto) 0.8 x10^3/uL (0.3-0.8) 07/09/25 04:31 Eos # (Auto) 0.0 x10^3/uL (0.0-0.2) 07/09/25 04:31 Baso # (Auto) 0.0 X10^3/uL (0.0-0.1) 07/09/25 04:31 Absolute Nucleated RBC 0.0 /100WBC 07/09/25 04:31 Total Counted 100 07/07/25 10:05 Neutrophils % (Manual) 67 % (39-76) 07/07/25 10:05 Band Neutrophils % 14 % (0-10) H 07/07/25 10:05 Lymphocytes % (Manual) 7 % (13-43) L 07/07/25 10:05 Monocytes % (Manual) 12 % (4-9) H 07/07/25 10:05 Plt Morphology Comment Normal (NORMAL) 07/07/25 10:05 RBC Morphology Normal (NORMAL) 07/07/25 10:05 Sodium 134 mmol/L (136-145) L 07/09/25 04:31 Corrected Sodium TNP 07/09/25 04:31 Potassium 3.3 mmol/L (3.5-5.1) L 07/09/25 04:31 Chloride 99 mmol/L (98-107) 07/09/25 04:31 Carbon Dioxide 27.7 mmol/L (21-32) 07/09/25 04:31 BUN 18 mg/dL (7-18) 07/09/25 04:31 Creatinine 0.80 mg/dL (0.55-1.02) 07/09/25 04:31 Est GFR (MDRD) Af Amer > 60 (>60) 07/09/25 04:31 Est GFR (MDRD) Non-Af > 60 (>60) 07/09/25 04:31 Glucose 82 mg/dL (65-99) 07/09/25 04:31 Lactic Acid 1.5 mmol/L (0.4-2.0) 07/08/25 00:05 Calcium 7.7 mg/dL (8.5-10.1) L 07/09/25 04:31 Corrected Calcium 9.6 mg/dL (8.5-10.1) 07/09/25 04:31 Magnesium 1.8 mg/dL (2.0-2.9) L 07/09/25 04:31 Total Bilirubin 0.50 mg/dL (0.2-1.0) 07/09/25 04:31 AST 28 Units/L (15-37) 07/09/25 04:31 ALT 14 Units/L (12-78) 07/09/25 04:31 Alkaline Phosphatase 57 Units/L (46-116) 07/09/25 04:31 Total Protein 5.2 g/dL (6.4-8.2) L 07/09/25 04:31 Albumin 1.6 g/dL (3.4-5.0) L 07/09/25 04:31 Globulin 3.6 g/dL (2.5-4.5) 07/09/25 04:31 Albumin/Globulin Ratio 0.4 Ratio (1.1-2.1) L 07/09/25 04:31 Amylase 34 Units/L (25-115) 07/07/25 10:05 Lipase 17 Units/L (16-77) 07/07/25 10:05 Specimen Type Clean catch urine 07/07/25 11:04 Urine Color Dark yellow (YELLOW) 07/07/25 11:04 Urine Appearance Cloudy (CLEAR) 07/07/25 11:04 Urine pH 5.0 (5.0 - 8.0) 07/07/25 11:04 Ur Specific [place] 1.020 (1.000-1.030) 07/07/25 11:04 Urine Protein 3+ (NEGATIVE) 07/07/25 11:04 Urine Glucose (UA) Negative (NEGATIVE) 07/07/25 11:04 Urine Ketones Negative (NEGATIVE) 07/07/25 11:04 Urine Blood 3+ (NEGATIVE) 07/07/25 11:04 Urine Nitrite Negative (NEGATIVE) 07/07/25 11:04 Urine Bilirubin Negative (NEGATIVE) 07/07/25 11:04 Urine Urobilinogen 1+ (NORMAL) 07/07/25 11:04 Ur Leukocyte Esterase 3+ (NEGATIVE) 07/07/25 11:04 Urine RBC 10-20 /HPF (0-3) A 07/07/25 11:04 Urine WBC 10-20 /HPF (0-5) A 07/07/25 11:04 Ur Squamous Epith Cells Few /HPF (NEGATIVE) 07/07/25 11:04 Amorphous Sediment 1+ /HPF (NEGATIVE) 07/07/25 11:04 Urine Bacteria 2+ /HPF (NEGATIVE) 07/07/25 11:04 Ur Culture Indicated? Yes/culture set up 07/07/25 11:04 SARS-CoV-2 (PCR) Negative (NEGATIVE) 07/07/25 13:20 Influenza Type A (PCR) Positive (NEGATIVE) A 07/07/25 13:20 Influenza Type B (PCR) Negative (NEGATIVE) 07/07/25 13:20 RSV (PCR) Negative (NEGATIVE) 07/07/25 13:20 Plan (1) Acute colitis: Status: Acute (2) Influenza A: Status: Acute (3) Acute renal failure: Status: Acute Qualifiers: Acute renal failure type: unspecified Qualified Code(s): N17.9 - Acute kidney failure, unspecified (4) UTI (urinary tract infection): Status: Acute Qualifiers: Urinary tract infection type: acute cystitis Hematuria presence: w ithout hematuria Qualified Code(s): N30.00 - Acute cystitis without hematuria (5) Dehydration: Status: Acute (6) Essential hypertension: Status: None
--- NOTE | 2025-07-09 11:39 | DR.PROGNOT ---
HOSPITAL PROGRESS NOTE Progress Note for Day of: Progress Note Date: 07/09/25 Chief Complaint Chief Complaint: Still complaining of diffuse abdominal pain with nausea, no vomiting, no bowel movement yet. White count is 14.1, hemoglobin 11 platelet count 132, potassium 3.3, BUN/creatinine are normal normal as well as liver function tests. Patient is afebrile and stable vital signs. Abdomen is moderately distended with mild to moderate tympany, bowel sounds 1+ with diffuse tenderness but no rebound or rigidity. Past Medical Family Social History Allergies: Allergies penicillin V Allergy (Unknown, Verified 03/16/20 15:58) Reason: Drug allergy Penicillins Allergy (Verified 05/12/19 21:10) Review Of Systems Changes in ROS: see HPI Vital Signs Vital Signs: Vital Signs Temperature 98.0 F Temperature 97.7 F Pulse Rate [Radial] 97 Pulse Rate [Radial] 98 Respiratory Rate 18 Respiratory Rate 19 Respiratory Rate 18 Respiratory Rate 18 Blood Pressure [Left Arm] 168/97 Blood Pressure [Left Arm] 166/98 O2 Sat by Pulse Oximetry 95 O2 Sat by Pulse Oximetry 93 Physical Exam Oriented: Normal Eyes: Normal Ear: Normal Nose: Normal Respiratory: Generalized and Diminished Cardiovascular: Normal : Normal GI:Auscultation: Normal GI:Palpation: Normal GI: Tenderness: Epigastric and Mild Skin: Decreased Turgur Psychiatric: Normal Mood Description: Calm Affect: Normal Speech Pattern: Clear and Appropriate Laboratory and Diagnostics 07/09/25 04:31 07/09/25 04:31 Labs: 07/07/25 11:42 Blood Blood Culture - Preliminary 07/07/25 11:48 Blood Blood Culture - Preliminary 07/07/25 11:04 Urine,Clean Catch Urine Culture - Final Escherichia Coli Laboratory WBC 14.1 X10^3/uL (3.6-10.0) H 07/09/25 04:31 RBC 3.86 X10^6/uL (3.5-5.4) 07/09/25 04:31 Hgb 11.7 g/dL (12.0-16.0) L 07/09/25 04:31 Hct 34.2 % (36.0-47.0) L 07/09/25 04:31 MCV 88.7 fL (80.0-100.0) 07/09/25 04:31 MCH 30.4 pg (27.0-34.0) 07/09/25 04:31 MCHC 34.3 g/dL (33.0-35.0) 07/09/25 04:31 RDW 14.0 % (11.6-16.5) 07/09/25 04:31 Plt Count 132 X10^3/uL (150.0-450.0) L 07/09/25 04:31 Plt Count Comment Decreased (ADEQUATE) A 07/07/25 10:05 MPV 8.6 fL (7.4-11.0) 07/09/25 04:31 Neut % (Auto) 88.4 % (42.0-75.0) H 07/09/25 04:31 Lymph % (Auto) 5.8 % (21.0-51.0) L 07/09/25 04:31 [place] % (Auto) 5.7 % (0.0-13.0) 07/09/25 04:31 Eos % (Auto) 0.0 % (0.9-2.9) L 07/09/25 04:31 Baso % (Auto) 0.1 % (0.2-1.0) L 07/09/25 04:31 Neut # (Auto) 12.5 x10^3/uL (2.2-4.8) H 07/09/25 04:31 Lymph # (Auto) 0.8 X10^3/uL (1.3-2.9) L 07/09/25 04:31 [place] # (Auto) 0.8 x10^3/uL (0.3-0.8) 07/09/25 04:31 Eos # (Auto) 0.0 x10^3/uL (0.0-0.2) 07/09/25 04:31 Baso # (Auto) 0.0 X10^3/uL (0.0-0.1) 07/09/25 04:31 Absolute Nucleated RBC 0.0 /100WBC 07/09/25 04:31 Total Counted 100 07/07/25 10:05 Neutrophils % (Manual) 67 % (39-76) 07/07/25 10:05 Band Neutrophils % 14 % (0-10) H 07/07/25 10:05 Lymphocytes % (Manual) 7 % (13-43) L 07/07/25 10:05 Monocytes % (Manual) 12 % (4-9) H 07/07/25 10:05 Plt Morphology Comment Normal (NORMAL) 07/07/25 10:05 RBC Morphology Normal (NORMAL) 07/07/25 10:05 Sodium 134 mmol/L (136-145) L 07/09/25 04:31 Corrected Sodium TNP 07/09/25 04:31 Potassium 3.3 mmol/L (3.5-5.1) L 07/09/25 04:31 Chloride 99 mmol/L (98-107) 07/09/25 04:31 Carbon Dioxide 27.7 mmol/L (21-32) 07/09/25 04:31 BUN 18 mg/dL (7-18) 07/09/25 04:31 Creatinine 0.80 mg/dL (0.55-1.02) 07/09/25 04:31 Est GFR (MDRD) Af Amer > 60 (>60) 07/09/25 04:31 Est GFR (MDRD) Non-Af > 60 (>60) 07/09/25 04:31 Glucose 82 mg/dL (65-99) 07/09/25 04:31 Lactic Acid 1.5 mmol/L (0.4-2.0) 07/08/25 00:05 Calcium 7.7 mg/dL (8.5-10.1) L 07/09/25 04:31 Corrected Calcium 9.6 mg/dL (8.5-10.1) 07/09/25 04:31 Magnesium 1.8 mg/dL (2.0-2.9) L 07/09/25 04:31 Total Bilirubin 0.50 mg/dL (0.2-1.0) 07/09/25 04:31 AST 28 Units/L (15-37) 07/09/25 04:31 ALT 14 Units/L (12-78) 07/09/25 04:31 Alkaline Phosphatase 57 Units/L (46-116) 07/09/25 04:31 Total Protein 5.2 g/dL (6.4-8.2) L 07/09/25 04:31 Albumin 1.6 g/dL (3.4-5.0) L 07/09/25 04:31 Globulin 3.6 g/dL (2.5-4.5) 07/09/25 04:31 Albumin/Globulin Ratio 0.4 Ratio (1.1-2.1) L 07/09/25 04:31 Amylase 34 Units/L (25-115) 07/07/25 10:05 Lipase 17 Units/L (16-77) 07/07/25 10:05 Specimen Type Clean catch urine 07/07/25 11:04 Urine Color Dark yellow (YELLOW) 07/07/25 11:04 Urine Appearance Cloudy (CLEAR) 07/07/25 11:04 Urine pH 5.0 (5.0 - 8.0) 07/07/25 11:04 Ur Specific [place] 1.020 (1.000-1.030) 07/07/25 11:04 Urine Protein 3+ (NEGATIVE) 07/07/25 11:04 Urine Glucose (UA) Negative (NEGATIVE) 07/07/25 11:04 Urine Ketones Negative (NEGATIVE) 07/07/25 11:04 Urine Blood 3+ (NEGATIVE) 07/07/25 11:04 Urine Nitrite Negative (NEGATIVE) 07/07/25 11:04 Urine Bilirubin Negative (NEGATIVE) 07/07/25 11:04 Urine Urobilinogen 1+ (NORMAL) 07/07/25 11:04 Ur Leukocyte Esterase 3+ (NEGATIVE) 07/07/25 11:04 Urine RBC 10-20 /HPF (0-3) A 07/07/25 11:04 Urine WBC 10-20 /HPF (0-5) A 07/07/25 11:04 Ur Squamous Epith Cells Few /HPF (NEGATIVE) 07/07/25 11:04 Amorphous Sediment 1+ /HPF (NEGATIVE) 07/07/25 11:04 Urine Bacteria 2+ /HPF (NEGATIVE) 07/07/25 11:04 Ur Culture Indicated? Yes/culture set up 07/07/25 11:04 SARS-CoV-2 (PCR) Negative (NEGATIVE) 07/07/25 13:20 Influenza Type A (PCR) Positive (NEGATIVE) A 07/07/25 13:20 Influenza Type B (PCR) Negative (NEGATIVE) 07/07/25 13:20 RSV (PCR) Negative (NEGATIVE) 07/07/25 13:20 Assessment and Plan 1: Influenza A Improving severe colitis . improving acute kidney injury. To continue patient on clear liquid diet, continue IV antibiotics and Tamiflu, IV fluid and close observation. To review her KUB today. Problem Patient Problems: Patient Problems Colitis (Acute) K52.9
[2025-07-09] MEDS: CATAPRES TAB 0.1 MG PO ONE (21:32)
[2025-07-10] MEDS: APRESOLINE INJ 20 MG VIAL IVP ONE (01:25)
[2025-07-10 05:54] LABS: MEAN PLATELET VOLUME 8.6 fL (7.4-11.0); RED CELL DISTRIBUTION WIDTH 14.2 % (11.6-16.5)
[2025-07-10 06:08] LABS: COR CA(FOR HYPOALB) 9.8 mg/dL (8.5-10.1); CREATININE 0.62 mg/dL (0.55-1.02); eGFR NON BLACK RACES > 60 (>60)
[2025-07-10] MEDS ORDERED: CONSULT PHARMACY - POTASSIUM & MAGNESIUM XX SCH (07:00)
[2025-07-10] MEDS: K-DUR TAB 20 MEQ PO SCH (08:59)
[2025-07-10] MEDS: MAG-OX TAB PO SCH (08:59)
--- NOTE | 2025-07-10 09:20 | RAD ---
EXAM: KUB HISTORY: SBO; COMPARISON: 07/09/2025 TECHNIQUE: AP abdomen, supine FINDINGS: Diffuse air-filled small and large bowel loops throughout the abdomen without abnormal distention. No abnormal calcifications. No significant colonic stool burden. IMPRESSION: Diffuse scattered air-filled small and large bowel loops throughout the abdomen may be secondary to ileus. Small-bowel obstruction considered less likely. THIS IS AN ELECTRONICALLY VERIFIED FINAL REPORT 07/10/2025 9:16 AM - Electronically signed by Samuel Milner MD
[2025-07-10] MEDS: ROCEPHIN VIAL 1 GRAM 1 G in NS 100 ML IV 100 ML IV SCH (10:50)
--- NOTE | 2025-07-10 13:25 | RAD ---
EXAM: KUB HISTORY: SEVERE COLITIS; COMPARISON: 07/08/2025 TECHNIQUE: AP FINDINGS: Diffuse air-filled prominent small and large bowel loops throughout the abdomen, similar to comparison. No abnormal calcifications. IMPRESSION: Similar diffuse air-filled small and large bowel loops throughout the abdomen. THIS IS AN ELECTRONICALLY VERIFIED FINAL REPORT 07/10/2025 1:22 PM - Electronically signed by Samuel Milner MD
--- NOTE | 2025-07-10 13:32 | DR.PROGNOT ---
HOSPITAL PROGRESS NOTE Progress Note for Day of: Progress Note Date: 07/10/25 Chief Complaint Chief Complaint: Patient is feeling slightly better today with less abdominal pain, no further nausea or vomiting. No bowel movement yet but passing flatus. She is having good urine output and afebrile. White count still elevated 14,000 with hemoglobin 12, potassium is 2.8, BUN and creatinine are normal, cesium is 1.8 and albumin is 1.6 which is low. Lactic acid is not available yet, KUB showed moderately distended small and large bowel consistent with ileus. Patient is more alert and answering question better than yesterday, Abdomen is moderately distended and tympanic but has hyperactive bowel sounds and minimal tenderness. Past Medical Family Social History Past Med/Fam/Surg Hx: No changes since H&P Allergies: Allergies penicillin V Allergy (Unknown, Verified 03/16/20 15:58) Reason: Drug allergy Penicillins Allergy (Verified 05/12/19 21:10) Review Of Systems ROS: No change since H&P Changes in ROS: see HPI Vital Signs Vital Signs: Vital Signs Temperature 98.2 F Temperature 98.3 F Pulse Rate [Radial] 99 Pulse Rate [Radial] 107 Pulse Rate 107 Respiratory Rate 18 Respiratory Rate 19 Respiratory Rate 19 Respiratory Rate 18 Blood Pressure [Left Arm] 135/73 Blood Pressure [Left Arm] 132/83 O2 Sat by Pulse Oximetry 95 O2 Sat by Pulse Oximetry 96 O2 Sat by Pulse Oximetry 98 Physical Exam Oriented: Normal Eyes: Normal Ear: Normal Nose: Normal Respiratory: Generalized and Diminished Cardiovascular: Normal : Normal GI:Auscultation: Normal GI:Palpation: Normal GI: Tenderness: Epigastric and Mild Skin: Decreased Turgur Psychiatric: Normal Mood Description: Calm Affect: Normal Speech Pattern: Clear and Appropriate Laboratory and Diagnostics 07/10/25 05:29 07/10/25 05:29 Labs: 07/07/25 11:42 Blood Blood Culture - Preliminary 07/07/25 11:48 Blood Blood Culture - Preliminary 07/07/25 11:04 Urine,Clean Catch Urine Culture - Final Escherichia Coli Laboratory WBC 14.0 X10^3/uL (3.6-10.0) H 07/10/25 05:29 RBC 3.98 X10^6/uL (3.5-5.4) 07/10/25 05:29 Hgb 12.0 g/dL (12.0-16.0) 07/10/25 05:29 Hct 35.2 % (36.0-47.0) L 07/10/25 05:29 MCV 88.4 fL (80.0-100.0) 07/10/25 05:29 MCH 30.2 pg (27.0-34.0) 07/10/25 05:29 MCHC 34.2 g/dL (33.0-35.0) 07/10/25 05:29 RDW 14.2 % (11.6-16.5) 07/10/25 05:29 Plt Count 213 X10^3/uL (150.0-450.0) 07/10/25 05:29 Plt Count Comment Decreased (ADEQUATE) A 07/07/25 10:05 MPV 8.6 fL (7.4-11.0) 07/10/25 05:29 Neut % (Auto) 83.7 % (42.0-75.0) H 07/10/25 05:29 Lymph % (Auto) 7.8 % (21.0-51.0) L 07/10/25 05:29 [place] % (Auto) 8.4 % (0.0-13.0) 07/10/25 05:29 Eos % (Auto) 0.0 % (0.9-2.9) L 07/10/25 05:29 Baso % (Auto) 0.1 % (0.2-1.0) L 07/10/25 05:29 Neut # (Auto) 11.7 x10^3/uL (2.2-4.8) H 07/10/25 05:29 Lymph # (Auto) 1.1 X10^3/uL (1.3-2.9) L 07/10/25 05:29 [place] # (Auto) 1.2 x10^3/uL (0.3-0.8) H 07/10/25 05:29 Eos # (Auto) 0.0 x10^3/uL (0.0-0.2) 07/10/25 05:29 Baso # (Auto) 0.0 X10^3/uL (0.0-0.1) 07/10/25 05:29 Absolute Nucleated RBC 0.0 /100WBC 07/10/25 05:29 Total Counted 100 07/07/25 10:05 Neutrophils % (Manual) 67 % (39-76) 07/07/25 10:05 Band Neutrophils % 14 % (0-10) H 07/07/25 10:05 Lymphocytes % (Manual) 7 % (13-43) L 07/07/25 10:05 Monocytes % (Manual) 12 % (4-9) H 07/07/25 10:05 Plt Morphology Comment Normal (NORMAL) 07/07/25 10:05 RBC Morphology Normal (NORMAL) 07/07/25 10:05 Sodium 139 mmol/L (136-145) 07/10/25 05:29 Corrected Sodium TNP 07/10/25 05:29 Potassium 2.8 mmol/L (3.5-5.1) L* 07/10/25 05:29 Chloride 102 mmol/L (98-107) 07/10/25 05:29 Carbon Dioxide 27.8 mmol/L (21-32) 07/10/25 05:29 BUN 10 mg/dL (7-18) 07/10/25 05:29 Creatinine 0.62 mg/dL (0.55-1.02) 07/10/25 05:29 Est GFR (MDRD) Af Amer > 60 (>60) 07/10/25 05:29 Est GFR (MDRD) Non-Af > 60 (>60) 07/10/25 05:29 Glucose 84 mg/dL (65-99) 07/10/25 05:29 Lactic Acid 1.5 mmol/L (0.4-2.0) 07/08/25 00:05 Calcium 7.9 mg/dL (8.5-10.1) L 07/10/25 05:29 Corrected Calcium 9.8 mg/dL (8.5-10.1) 07/10/25 05:29 Magnesium 1.8 mg/dL (2.0-2.9) L 07/10/25 05:29 Total Bilirubin 0.40 mg/dL (0.2-1.0) 07/10/25 05:29 AST 25 Units/L (15-37) 07/10/25 05:29 ALT 15 Units/L (12-78) 07/10/25 05:29 Alkaline Phosphatase 83 Units/L (46-116) 07/10/25 05:29 Total Protein 5.5 g/dL (6.4-8.2) L 07/10/25 05:29 Albumin 1.6 g/dL (3.4-5.0) L 07/10/25 05:29 Globulin 3.9 g/dL (2.5-4.5) 07/10/25 05:29 Albumin/Globulin Ratio 0.4 Ratio (1.1-2.1) L 07/10/25 05:29 Amylase 34 Units/L (25-115) 07/07/25 10:05 Lipase 17 Units/L (16-77) 07/07/25 10:05 Specimen Type Clean catch urine 07/07/25 11:04 Urine Color Dark yellow (YELLOW) 07/07/25 11:04 Urine Appearance Cloudy (CLEAR) 07/07/25 11:04 Urine pH 5.0 (5.0 - 8.0) 07/07/25 11:04 Ur Specific [place] 1.020 (1.000-1.030) 07/07/25 11:04 Urine Protein 3+ (NEGATIVE) 07/07/25 11:04 Urine Glucose (UA) Negative (NEGATIVE) 07/07/25 11:04 Urine Ketones Negative (NEGATIVE) 07/07/25 11:04 Urine Blood 3+ (NEGATIVE) 07/07/25 11:04 Urine Nitrite Negative (NEGATIVE) 07/07/25 11:04 Urine Bilirubin Negative (NEGATIVE) 07/07/25 11:04 Urine Urobilinogen 1+ (NORMAL) 07/07/25 11:04 Ur Leukocyte Esterase 3+ (NEGATIVE) 07/07/25 11:04 Urine RBC 10-20 /HPF (0-3) A 07/07/25 11:04 Urine WBC 10-20 /HPF (0-5) A 07/07/25 11:04 Ur Squamous Epith Cells Few /HPF (NEGATIVE) 07/07/25 11:04 Amorphous Sediment 1+ /HPF (NEGATIVE) 07/07/25 11:04 Urine Bacteria 2+ /HPF (NEGATIVE) 07/07/25 11:04 Ur Culture Indicated? Yes/culture set up 07/07/25 11:04 SARS-CoV-2 (PCR) Negative (NEGATIVE) 07/07/25 13:20 Influenza Type A (PCR) Positive (NEGATIVE) A 07/07/25 13:20 Influenza Type B (PCR) Negative (NEGATIVE) 07/07/25 13:20 RSV (PCR) Negative (NEGATIVE) 07/07/25 13:20 Assessment and Plan 1: Influenza A Improving colitis . Add albumin hopefully it will improve the edema. Normal kidney function now To continue patient on full liquid diet, continue IV antibiotics and Tamiflu, IV fluid and close observation. To repeat her KUB in am.. Problem Patient Problems: Patient Problems Colitis (Acute) K52.9
[2025-07-10] MEDS: ALBUMIN HUMAN 25%- 100 ML 100 ML IV ONE (14:50)
[2025-07-10 16:37] LABS: BLOOD/HEMOGLOBIN,URINE 1+ (NEGATIVE); LEUKOCYTE ESTERASE ,URINE 2+ (NEGATIVE); NITRITES,URINE NEGATIVE (NEGATIVE)
[2025-07-10 16:38] LABS: APPEARANCE,URINE CLEAR (CLEAR)
[2025-07-10 17:25] LABS: SQUAMOUS EPITHELIAL CELL,UR MODERATE /HPF (NEGATIVE)
[2025-07-10] MEDS: TAMIFLU PO SCH (20:51)
--- NOTE | 2025-07-10 21:37 | PCM.PROG ---
Progress Note Progress Note for Day of Date of Exam: 07/10/25 Subjective Subjective: Patient examined at bedside. No acute events overnight. She reports improvement in her abdominal pain but still is just tolerating full liquid diet. She is currently admitted for flu, UTI, SARAH and colitis. She remains on IV antibiotics. Denies any diarrhea. Labs/imaging reviewed: - WBC 14, hemoglobin 12, platelets 213, sodium 139, potassium 2.8, creatinine 0.62, glucose 84 - Urine Culture positive for E coli. Blood culture NGTD. - KUB: Diffuse scattered air-filled small and large bowel loops throughout the abdomen may be secondary to ileus. Small-bowel obstruction considered less likely. Plan: Continue IV fluids, pain control. Continue IV antibiotics. Due to sensitivities of E. coli, will add on IV Rocephin. Continue Tamiflu, bronchodilators. Follow cultures. Follow surgery recommendations. Advance diet as per surgery. Replace electrolytes as per protocol. Monitor a.m. labs and imaging. Past Medical Family Social History Past Med/Fam/Surg Hx: No changes since H&P Allergies: Allergies penicillin V Allergy (Unknown, Verified 03/16/20 15:58) Reason: Drug allergy Penicillins Allergy (Verified 05/12/19 21:10) Review of Systems ROS changes noted: see HPI Vital Signs and I&O's Vital Signs: Vital Signs Temperature 98.1 F Pulse Rate [Radial] 95 Respiratory Rate 17 Respiratory Rate 17 Respiratory Rate 17 Blood Pressure [Left Arm] 134/82 O2 Sat by Pulse Oximetry 96 Intake and Output: Intake & Output 07/07/25 07/08/25 07/09/25 07/10/25 23:59 23:59 23:59 23:59 Intake Total 0 / 0 1331 / 1331 1807 / 1807 1511 / 1511 Balance 0 / 0 1331 / 1331 1807 / 1807 1511 / 1511 Physical Exam Oriented: Normal Eyes: Normal Ear: Normal Nose: Normal Respiratory: Generalized and Diminished Cardiovascular: Normal : Normal Auscultation: Bowel Sounds: Normal Palpation: Normal Tenderness: Epigastric and Mild Skin: Normal Psychiatric: Normal Mood Description: Calm Affect: Normal Speech Pattern: Clear and Appropriate Laboratory and Diagnostics 07/10/25 05:29 07/10/25 05:29 Labs: 07/07/25 11:42 Blood Blood Culture - Preliminary 07/07/25 11:48 Blood Blood Culture - Preliminary 07/07/25 11:04 Urine,Clean Catch Urine Culture - Final Escherichia Coli Laboratory WBC 14.0 X10^3/uL (3.6-10.0) H 07/10/25 05:29 RBC 3.98 X10^6/uL (3.5-5.4) 07/10/25 05:29 Hgb 12.0 g/dL (12.0-16.0) 07/10/25 05:29 Hct 35.2 % (36.0-47.0) L 07/10/25 05:29 MCV 88.4 fL (80.0-100.0) 07/10/25 05:29 MCH 30.2 pg (27.0-34.0) 07/10/25 05:29 MCHC 34.2 g/dL (33.0-35.0) 07/10/25 05:29 RDW 14.2 % (11.6-16.5) 07/10/25 05:29 Plt Count 213 X10^3/uL (150.0-450.0) 07/10/25 05:29 Plt Count Comment Decreased (ADEQUATE) A 07/07/25 10:05 MPV 8.6 fL (7.4-11.0) 07/10/25 05:29 Neut % (Auto) 83.7 % (42.0-75.0) H 07/10/25 05:29 Lymph % (Auto) 7.8 % (21.0-51.0) L 07/10/25 05:29 [place] % (Auto) 8.4 % (0.0-13.0) 07/10/25 05:29 Eos % (Auto) 0.0 % (0.9-2.9) L 07/10/25 05:29 Baso % (Auto) 0.1 % (0.2-1.0) L 07/10/25 05:29 Neut # (Auto) 11.7 x10^3/uL (2.2-4.8) H 07/10/25 05:29 Lymph # (Auto) 1.1 X10^3/uL (1.3-2.9) L 07/10/25 05:29 [place] # (Auto) 1.2 x10^3/uL (0.3-0.8) H 07/10/25 05:29 Eos # (Auto) 0.0 x10^3/uL (0.0-0.2) 07/10/25 05:29 Baso # (Auto) 0.0 X10^3/uL (0.0-0.1) 07/10/25 05:29 Absolute Nucleated RBC 0.0 /100WBC 07/10/25 05:29 Total Counted 100 07/07/25 10:05 Neutrophils % (Manual) 67 % (39-76) 07/07/25 10:05 Band Neutrophils % 14 % (0-10) H 07/07/25 10:05 Lymphocytes % (Manual) 7 % (13-43) L 07/07/25 10:05 Monocytes % (Manual) 12 % (4-9) H 07/07/25 10:05 Plt Morphology Comment Normal (NORMAL) 07/07/25 10:05 RBC Morphology Normal (NORMAL) 07/07/25 10:05 Sodium 139 mmol/L (136-145) 07/10/25 05:29 Corrected Sodium TNP 07/10/25 05:29 Potassium 2.8 mmol/L (3.5-5.1) L* 07/10/25 05:29 Chloride 102 mmol/L (98-107) 07/10/25 05:29 Carbon Dioxide 27.8 mmol/L (21-32) 07/10/25 05:29 BUN 10 mg/dL (7-18) 07/10/25 05:29 Creatinine 0.62 mg/dL (0.55-1.02) 07/10/25 05:29 Est GFR (MDRD) Af Amer > 60 (>60) 07/10/25 05:29 Est GFR (MDRD) Non-Af > 60 (>60) 07/10/25 05:29 Glucose 84 mg/dL (65-99) 07/10/25 05:29 Lactic Acid 1.5 mmol/L (0.4-2.0) 07/08/25 00:05 Calcium 7.9 mg/dL (8.5-10.1) L 07/10/25 05:29 Corrected Calcium 9.8 mg/dL (8.5-10.1) 07/10/25 05:29 Magnesium 1.8 mg/dL (2.0-2.9) L 07/10/25 05:29 Total Bilirubin 0.40 mg/dL (0.2-1.0) 07/10/25 05:29 AST 25 Units/L (15-37) 07/10/25 05:29 ALT 15 Units/L (12-78) 07/10/25 05:29 Alkaline Phosphatase 83 Units/L (46-116) 07/10/25 05:29 Total Protein 5.5 g/dL (6.4-8.2) L 07/10/25 05:29 Albumin 1.6 g/dL (3.4-5.0) L 07/10/25 05:29 Globulin 3.9 g/dL (2.5-4.5) 07/10/25 05:29 Albumin/Globulin Ratio 0.4 Ratio (1.1-2.1) L 07/10/25 05:29 Amylase 34 Units/L (25-115) 07/07/25 10:05 Lipase 17 Units/L (16-77) 07/07/25 10:05 Specimen Type Clean catch urine 07/10/25 16:25 Urine Color [place] (YELLOW) 07/10/25 16:25 Urine Appearance Clear (CLEAR) 07/10/25 16:25 Urine pH 7.0 (5.0 - 8.0) 07/10/25 16:25 Ur Specific [place] 1.015 (1.000-1.030) 07/10/25 16:25 Urine Protein 2+ (NEGATIVE) 07/10/25 16:25 Urine Glucose (UA) Negative (NEGATIVE) 07/10/25 16:25 Urine Ketones 2+ (NEGATIVE) 07/10/25 16:25 Urine Blood 1+ (NEGATIVE) 07/10/25 16:25 Urine Nitrite Negative (NEGATIVE) 07/10/25 16:25 Urine Bilirubin Negative (NEGATIVE) 07/10/25 16:25 Urine Urobilinogen 2+ (NORMAL) 07/10/25 16:25 Ur Leukocyte Esterase 2+ (NEGATIVE) 07/10/25 16:25 Urine RBC 0-2 /HPF (0-3) 07/10/25 16:25 Urine WBC Tntc /HPF (0-5) A 07/10/25 16:25 Ur Squamous Epith Cells Moderate /HPF (NEGATIVE) 07/10/25 16:25 Amorphous Sediment 1+ /HPF (NEGATIVE) 07/07/25 11:04 Urine Bacteria 1+ /HPF (NEGATIVE) 07/10/25 16:25 Granular Casts Rare /LPF (NEGATIVE) 07/10/25 16:25 Ur Culture Indicated? Yes/culture set up 07/10/25 16:25 SARS-CoV-2 (PCR) Negative (NEGATIVE) 07/07/25 13:20 Influenza Type A (PCR) Positive (NEGATIVE) A 07/07/25 13:20 Influenza Type B (PCR) Negative (NEGATIVE) 07/07/25 13:20 RSV (PCR) Negative (NEGATIVE) 07/07/25 13:20 Plan (1) Acute colitis: Status: Acute (2) Influenza A: Status: Acute (3) Acute renal failure: Status: Acute Qualifiers: Acute renal failure type: unspecified Qualified Code(s): N17.9 - Acute kidney failure, unspecified (4) UTI (urinary tract infection): Status: Acute Qualifiers: Urinary tract infection type: acute cystitis Hematuria presence: w ithout hematuria Qualified Code(s): N30.00 - Acute cystitis without hematuria (5) Dehydration: Status: Acute (6) Essential hypertension: Status: None
[2025-07-11 04:05] VITALS: O2SAT 94
[2025-07-11 06:39] VITALS: RESP 18
[2025-07-11 07:08] LABS: COR CA(FOR HYPOALB) 9.4 mg/dL (8.5-10.1); CREATININE 0.68 mg/dL (0.55-1.02); eGFR NON BLACK RACES > 60 (>60)
[2025-07-11 07:17] LABS: MEAN PLATELET VOLUME 8.0 fL (7.4-11.0); RED CELL DISTRIBUTION WIDTH 14.5 % (11.6-16.5)
--- NOTE | 2025-07-11 07:47 | RAD ---
EXAM: KUB portable HISTORY: Colitis COMPARISON: 2024 FINDINGS: Continued moderate gaseous distention of small and large bowel without evidence for developing mass, visceral enlargement, calcification or ascites. The retroperitoneal structures are obscured. IMPRESSION: No change. Intestinal distention persists, more likely ileus rather than obstruction. THIS IS AN ELECTRONICALLY VERIFIED FINAL REPORT 07/11/2025 7:44 AM - Electronically signed by Allen Botello MD
[2025-07-11] MEDS ORDERED: CONSULT PHARMACY - POTASSIUM & MAGNESIUM XX SCH (08:00)
[2025-07-11 08:13] VITALS: BP 153/85; PULSE 100; TEMP 98.6
[2025-07-11] MEDS ORDERED: NORCO 5/325 MG TAB PO PRN (08:32)
[2025-07-11] MEDS: MAG-OX TAB PO SCH (08:51)
[2025-07-11] MEDS: K-DUR TAB 20 MEQ PO SCH (08:51)
== END 2025-07-11 11:40 | disposition home or self-care (01) | DRG 392 ==
LOC: MED/SURG 09:34 → ER 09:34 → MED/SURG 15:28
PROVIDERS: ADMIT Surgery; ATTEND Surgery
DX: R19.7 Diarrhea, unspecified; Z29.89 Encounter for other specified prophylactic measures; R10.84 Generalized abdominal pain; R94.4 Abnormal results of kidney function studies; Z16.29 Resistance to other single specified antibiotic; R73.09 Other abnormal glucose; E87.6 Hypokalemia; E87.1 Hypo-osmolality and hyponatremia; Z16.23 Resistance to quinolones and fluoroquinolones; J10.1 Influenza due to other identified influenza virus with other respiratory manifestations; Z16.11 Resistance to penicillins; E83.51 Hypocalcemia; R94.31 Abnormal electrocardiogram [ECG] [EKG]; N17.8 Other acute kidney failure; K52.89 Other specified noninfective gastroenteritis and colitis; M19.90 Unspecified osteoarthritis, unspecified site; R79.89 Other specified abnormal findings of blood chemistry; N30.00 Acute cystitis without hematuria; E86.0 Dehydration; K56.690 Other partial intestinal obstruction; I10 Essential (primary) hypertension; D72.828 Other elevated white blood cell count; B96.29 Other Escherichia coli [E. coli] as the cause of diseases classified elsewhere; Z01.810 Encounter for preprocedural cardiovascular examination; Z03.818 Encounter for observation for suspected exposure to other biological agents ruled out